=== PATIENT | female | born 1975 | race Caucasian/White ===

== ENCOUNTER 2019-01-05 12:04 | Outpatient (CLI) | payer OTHER | END 2019-01-05 12:17 | disposition home or self-care (01) | LOC: RX STUDY 12:04 | DX: Q51.818 Other congenital malformations of uterus (principal) ==

== ENCOUNTER 2020-08-06 05:38 | Day surgery (SDC) | payer OTHER | END 2020-08-06 10:35 | disposition home or self-care (01) | LOC: AMB-ENDOS 05:38 | PROVIDERS: ATTEND Surgery | DX: K62.89 Other specified diseases of anus and rectum (principal); Z20.828 Contact with and (suspected) exposure to other viral communicable diseases ==